=== PATIENT | female | born 1945 | race Caucasian/White ===

== ENCOUNTER → 2017-10-26 11:14 | Outpatient (CLI) | payer MEDICARE, SELFPAY ==
[2017-10-26 11:39] LABS: Bacteria 0 SEEN /hpf (None Seen); Mucous, Urine 0 SEEN /hpf (<or=2+)
[2017-10-26 11:52] LABS: Color, Urine Yellow (Yellow); Glucose, Dipstick Normal (Normal); Ketone-Dipstick Negative (Negative); Leukocyte Esterase-Dipstick 25 /ul (Negative); Nitrite-Dipstick Negative (Negative); Occult Blood-Urine 25 /ul (Negative); Protein-Dipstick 15 mg/dl (Negative); Specific Gravity, Urine 1.015 (1.002-1.030); Urine Bilirubin Dipstick Negative (Negative); Urine Clarity Sl. Cloudy (Clear); Urine Urobilinogen Normal (Normal)
[2017-10-26 11:56] LABS: AST(SGOT) 19 U/L (15-37); Alanine Aminotransfer ALT/SGPT 26 U/L (13-56); Albumin, Serum 4.3 g/dL (3.2-5.0); Alkaline Phosphatase 85 U/L (45-117); Anion Gap 9 (5-15); BUN 12 mg/dL (7-18); BUN/Creat Ratio 10.3 RATIO (10-20); Calcium,Total 9.2 mg/dL (8.5-10.1); Chloride 105 mmol/L (98-107); Cholesterol 260 mg/dL (200); Creatinine, Serum 1.16 mg/dL (0.55-1.02); EST Glomerular Filtration Rate 49 mL/min (>60); Est Glom Filt Rate - Afr Amer 59 mL/min (>60); Globulin 4.2 g/dL (2.2-4.2); Glucose 113 mg/dL (74-106); High Density Lipoprotein 78 mg/dL; Potassium 3.7 mmol/L (3.5-5.1); Protein, Total 8.5 g/dL (6.4-8.2); Sodium Level 142 mmol/L (136-145); Triglycerides 137 mg/dL; Very Low Density Lipoprotein 27 mg/dL (5-40)
[2017-10-26 12:00] LABS: Hyaline Cast 0-5 SEEN /lpf (0-5); Red Blood Cells-Urine 0-5 SEEN /hpf (0-5); Squamous Epithelial Cells - UA 0-5 SEEN /hpf (5-10); White Blood Cells 0-5 SEEN /hpf (0-5)
[2017-10-26 12:04] LABS: Vitamin D,25 Hydroxy 35.3 ng/mL (29.95-100.01)
== END ==
PROVIDERS: Family Provider Family Medicine; PCP Family Medicine; Visit Provider Family Medicine
DX: E78.2 Mixed hyperlipidemia (principal); E55.9 Vitamin D deficiency, unspecified
CPT/HCPCS: 80053; 80061; 81001; 82306

== ENCOUNTER → 2018-08-06 15:44 | Outpatient (CLI) | payer MEDICARE, SELFPAY ==
[2018-08-06 16:33] LABS: AST(SGOT) 22 U/L (15-37); Alanine Aminotransfer ALT/SGPT 28 U/L (13-56); Albumin, Serum 4.4 g/dL (3.2-5.0); Alkaline Phosphatase 94 U/L (45-117); Bilirubin, Direct 0.15 mg/dL (0.00-0.30); Cholesterol 193 mg/dL (200); Globulin 4.2 g/dL (2.2-4.2); High Density Lipoprotein 75 mg/dL; Protein, Total 8.6 g/dL (6.4-8.2); Triglycerides 100 mg/dL; Very Low Density Lipoprotein 20 mg/dL (5-40)
== END ==
PROVIDERS: Family Provider Family Medicine; PCP Family Medicine; Referring Provider Family Medicine; Visit Provider Family Medicine
DX: E78.2 Mixed hyperlipidemia (principal)
CPT/HCPCS: 80061; 80076

== ENCOUNTER → 2019-06-19 | Outpatient (CLI) | payer MEDICARE, SELFPAY ==
[2019-06-19 17:02] LABS: Cholesterol 259 mg/dL (200); High Density Lipoprotein 50 mg/dL; Thyroid Stim Hormone (TSH) 2.14 uIU/mL (0.358-3.74); Triglycerides 230 mg/dL; Very Low Density Lipoprotein 46 mg/dL (5-40)
== END | disposition home or self-care (01) ==
PROVIDERS: PCP Family Medicine; Referring Provider Physician Assistant; Visit Provider Physician Assistant
DX: R63.5 Abnormal weight gain (principal); E78.2 Mixed hyperlipidemia
CPT/HCPCS: 80061; 84439; 84443

== ENCOUNTER → 2019-12-11 | Outpatient (CLI) | payer MEDICARE, SELFPAY ==
[2019-12-11 13:08] LABS: Mucous, Urine 0 SEEN /hpf (<or=2+); Red Blood Cells-Urine 0 SEEN /hpf (0-5)
[2019-12-11 13:20] LABS: Color, Urine Yellow (Yellow); Glucose, Dipstick Normal (Normal); Ketone-Dipstick Negative (Negative); Leukocyte Esterase-Dipstick Negative /ul (Negative); Nitrite-Dipstick Negative (Negative); Occult Blood-Urine 10 /ul (Negative); Protein-Dipstick Negative (Negative); Urine Bilirubin Dipstick Negative (Negative); Urine Clarity Sl. Cloudy (Clear); Urine Urobilinogen Normal (Normal); Urine pH 6.5 (5.0 - 8.0)
[2019-12-11 13:27] LABS: Bacteria 1+ /hpf (None Seen); Squamous Epithelial Cells - UA 0-5 SEEN /hpf (5-10); White Blood Cells 0-5 SEEN /hpf (0-5)
[2019-12-11 13:32] LABS: Cholesterol 188 mg/dL (200); High Density Lipoprotein 69 mg/dL; Triglycerides 166 mg/dL; Very Low Density Lipoprotein 33 mg/dL (5-40)
[2019-12-11 13:34] LABS: Vitamin D,25 Hydroxy 38.6 ng/mL
== END | disposition home or self-care (01) ==
LOC: LABSPEC 12:15
PROVIDERS: PCP Family Medicine; Referring Provider Family Medicine; Visit Provider Family Medicine
DX: E78.2 Mixed hyperlipidemia (principal); E55.9 Vitamin D deficiency, unspecified
CPT/HCPCS: 80061; 81001; 82306

== ENCOUNTER → 2020-06-11 | Outpatient (CLI) | payer MEDICARE, SELFPAY ==
[2020-06-11 15:33] LABS: Mucous, Urine 0 SEEN /hpf (<or=2+); Red Blood Cells-Urine 0 SEEN /hpf (0-5); White Blood Cells 0 SEEN /hpf (0-5)
[2020-06-11 15:43] LABS: Absolute Lymphocyte Count 3.59 X10^3/uL (0.83-4.51); Absolute Neutrophil Count 7.5 X10^3/uL (2.0-7.7); Basophil# 0.08 X10^3/uL; Basophil% 0.7 % (0-1); Eosinophil# 0.18 X10^3/uL; Eosinophils% 1.5 % (0-5); Hematocrit 41.8 % (37-47); Hemoglobin 13.8 g/dL (12.0-15.0); Lymphocyte # 3.59 X10^3/ul (4.0); Lymphocyte % 29.3 % (19-41); Mean Corpuscular Hgb 29.6 pg (27.0-32.0); Mean Corpuscular Volume 89.7 fL (81-99); Mean Platelet Vol. 12.3 fl (6.2-12.0); Monocyte# 0.88 X10^3/uL; Monocyte% 7.2 % (0-10); NRBC Flagged by Analyzer 0 % (0-5); Neutrophil # 7.48 X10^3/uL (2.7-7.7); Platelet Count 321 K/mm3 (150-450); RBC Distribution Width CV 14.8 % (11.6-14.6); RBC Distribution Width SD 48.5 fl (35.1-43.9); Red Blood Count 4.66 M/mm3 (4.2-5.4); White Blood Count 12.3 K/mm3 (4.4-11.0)
[2020-06-11 15:55] LABS: AST(SGOT) 24 U/L (15-37); Alanine Aminotransfer ALT/SGPT 32 U/L (13-56); Albumin, Serum 4.1 g/dL (3.2-5.0); Alkaline Phosphatase 96 U/L (45-117); Anion Gap 9 (5-15); BUN 14 mg/dL (7-18); BUN/Creat Ratio 13.2 RATIO (10-20); Calcium,Total 9.4 mg/dL (8.5-10.1); Chloride 105 mmol/L (98-107); Cholesterol 209 mg/dL (200); Creatinine, Serum 1.06 mg/dL (0.55-1.02); EST Glomerular Filtration Rate 54 mL/min (>60); Est Glom Filt Rate - Afr Amer 65 mL/min (>60); Globulin 4.3 g/dL (2.2-4.2); Glucose 92 mg/dL (74-106); High Density Lipoprotein 61 mg/dL; Potassium 3.5 mmol/L (3.5-5.1); Protein, Total 8.4 g/dL (6.4-8.2); Sodium Level 139 mmol/L (136-145); Triglycerides 139 mg/dL; Very Low Density Lipoprotein 28 mg/dL (5-40)
[2020-06-11 15:56] LABS: Vitamin D,25 Hydroxy 52.9 ng/mL
[2020-06-11 16:01] LABS: Color, Urine Yellow (Yellow); Glucose, Dipstick Normal (Normal); Ketone-Dipstick 5 mg/dl (Negative); Leukocyte Esterase-Dipstick Negative /ul (Negative); Nitrite-Dipstick Negative (Negative); Occult Blood-Urine Negative /ul (Negative); Protein-Dipstick Negative (Negative); Specific Gravity, Urine 1.015 (1.002-1.030); Urine Bilirubin Dipstick Negative (Negative); Urine Clarity Clear (Clear); Urine Urobilinogen Normal (Normal)
[2020-06-11 16:19] LABS: Bacteria 2+ /hpf (None Seen); Hyaline Cast 0-5 SEEN /lpf (0-5); Squamous Epithelial Cells - UA 0-5 SEEN /hpf (5-10)
== END | disposition home or self-care (01) ==
LOC: LABSPEC 15:15
PROVIDERS: PCP Family Medicine; Visit Provider Family Medicine
DX: Z79.899 Other long term (current) drug therapy (principal); E78.2 Mixed hyperlipidemia; E55.9 Vitamin D deficiency, unspecified
CPT/HCPCS: 80053; 80061; 81001; 82306; 85025

== ENCOUNTER 2020-06-24 14:05 | Outpatient (RCR) | payer MEDICARE, SELFPAY ==
[2020-06-24] MEDS: COVID-19 VACC, MRNA(PFIZER)/PF 30 MCG/0.3 ML SYRINGE IM (13:24)
[2020-07-15] MEDS: COVID-19 VACC, MRNA(PFIZER)/PF 30 MCG/0.3 ML SYRINGE IM (13:35)
== END 2020-09-21 23:59 ==
LOC: IMMUN 14:05
PROVIDERS: PCP Family Medicine; Visit Provider Family Medicine
DX: Z23 Encounter for immunization (principal)
CPT/HCPCS: 0001A; 0002A; 91300

== ENCOUNTER → 2020-11-12 | Outpatient (CLI) | payer MEDICARE, SELFPAY ==
[2020-11-18 12:08] LABS: HSV 1 By PCR Negative (Negative)
[2020-11-18 12:59] LABS: HSV 2 By PCR Negative (Negative)
== END | disposition home or self-care (01) ==
PROVIDERS: PCP Family Medicine; Visit Provider Nurse Practitioner Family
DX: R21 Rash and other nonspecific skin eruption (principal)
CPT/HCPCS: 87101; 87529; 87798

== ENCOUNTER → 2021-01-03 | Outpatient (CLI) | payer MEDICARE, SELFPAY ==
[2021-01-03 16:43] LABS: Cholesterol 284 mg/dL (200); High Density Lipoprotein 58 mg/dL; T4 Free Direct 0.93 ng/dL (0.76-1.46); Thyroid Stim Hormone (TSH) 2.01 uIU/mL (0.358-3.74); Triglycerides 206 mg/dL; Very Low Density Lipoprotein 41 mg/dL (5-40)
== END | disposition home or self-care (01) ==
LOC: LABSPEC 16:05
PROVIDERS: PCP Family Medicine; Referring Provider Physician Assistant; Visit Provider Physician Assistant
DX: E78.2 Mixed hyperlipidemia (principal); R63.5 Abnormal weight gain; R53.83 Other fatigue
CPT/HCPCS: 80061; 84439; 84443

== ENCOUNTER 2021-06-10 12:10 | Observation (INO) | payer MEDICARE, SELFPAY ==
[2021-06-10] VITALS (8 sets, daily range): BP systolic 145–186; BP diastolic 62–116; PULSE 100–127; RESP 12–24; TEMP 36.3–36.6; O2SAT 94–98; BMI 34.9; BMI 39.4
--- NOTE | 2021-06-10 12:14 | EKG12_ITS ---
Test Reason : CONFUSION Blood Pressure : / mmHG Vent. Rate : 114 BPM Atrial Rate : 114 BPM P-R Int : 160 ms QRS Dur : 088 ms QT Int : 354 ms P-R-T Axes : 053 026 003 degrees QTc Int : 487 ms Sinus tachycardia Inferior infarct , age undetermined Abnormal ECG Confirmed by ELYSSA CALI, PEPE ([id number]), online content editor JODIE PONCE ([id number]) on 06/13/2021 11:59:46 AM Referred By: ELHAM Confirmed By:PEPE BERGERON MD
[2021-06-10 12:41] LABS: Mucous, Urine 0 SEEN /hpf (<or=2+); Red Blood Cells-Urine 0 SEEN /hpf (0-5)
[2021-06-10 12:43] LABS: Absolute Lymphocyte Count 3.49 X10^3/uL (0.83-4.51); Absolute Neutrophil Count 8.4 X10^3/uL (2.0-7.7); Basophil# 0.08 X10^3/uL; Basophil% 0.6 % (0-1); Eosinophil# 0.16 X10^3/uL; Eosinophils% 1.2 % (0-5); Hematocrit 37.7 % (37-47); Hemoglobin 13.1 g/dL (12.0-15.0); Lymphocyte # 3.49 X10^3/ul (0.83-4.51); Lymphocyte % 26.4 % (19-41); Mean Corp Hgb Conc 34.7 g/dL (32-36); Mean Corpuscular Hgb 30.4 pg (27.0-32.0); Mean Corpuscular Volume 87.5 fL (81-99); Mean Platelet Vol. 10.5 fl (6.2-12.0); Monocyte# 1.04 X10^3/uL; Monocyte% 7.9 % (0-10); NRBC Flagged by Analyzer 0 % (0-5); Neutrophil # 8.41 X10^3/uL (2.7-7.7); Neutrophil % 63.6 % (47-70); Platelet Count 375 K/mm3 (150-450); RBC Distribution Width CV 14.1 % (11.6-14.6); RBC Distribution Width SD 45.7 fl (35.1-43.9); Red Blood Count 4.31 M/mm3 (4.2-5.4); White Blood Count 13.2 K/mm3 (4.4-11.0)
[2021-06-10 12:52] LABS: Anion Gap 6 (5-15); BUN 8 mg/dL (7-18); BUN/Creat Ratio 9.6 RATIO (10-20); Calcium,Total 9.1 mg/dL (8.5-10.1); Chloride 99 mmol/L (98-107); Creatinine, Serum 0.83 mg/dL (0.55-1.02); EST Glomerular Filtration Rate 71 mL/min (>60); Est Glom Filt Rate - Afr Amer 86 mL/min (>60); Estimated Creatinine Clearance 44.19 ml/min; Glucose 117 mg/dL (74-106); Potassium 3.5 mmol/L (3.5-5.1); Sodium Level 134 mmol/L (136-145)
[2021-06-10 12:53] LABS: Color, Urine Yellow (Yellow); Glucose, Dipstick Normal (Normal); Ketone-Dipstick Negative (Negative); Leukocyte Esterase-Dipstick Negative /ul (Negative); Nitrite-Dipstick Negative (Negative); Occult Blood-Urine 25 /ul (Negative); Protein-Dipstick Negative (Negative); Specific Gravity, Urine 1.005 (1.002-1.030); Urine Bilirubin Dipstick Negative (Negative); Urine Clarity Clear (Clear); Urine Urobilinogen Normal (Normal)
[2021-06-10 12:55] LABS: Prothrombin Time (Protime)PT. 12.7 SECONDS (11.7-14.9)
[2021-06-10 12:56] LABS: Partial Thromboplast Time 29.3 Seconds (24.1-36.2)
[2021-06-10 13:06] LABS: Bacteria 1+ /hpf (None Seen); Squamous Epithelial Cells - UA 0-5 SEEN /hpf (5-10); White Blood Cells 0-5 SEEN /hpf (0-5)
[2021-06-10] MEDS: 0.9% Normal Saline 1,000 ML 50 ML IV (14:04)
--- NOTE | 2021-06-10 14:06 | RAD_ITS ---
STUDY: X-RAY CHEST REASON FOR EXAM: Female, 75 years old. Stroke . Confusion. TECHNIQUE: Single AP portable view of the chest. COMPARISON: None. FINDINGS: EKG electrodes are seen. The lungs are clear and expanded. There is no demonstrated pleural abnormality. Normal size heart. Normal mediastinum and jamey. Normal visualized pulmonary arteries. There is atherosclerotic tortuosity of the aortic arch and descending thoracic aorta. There are diffuse degenerative changes of the visualized thoracic spine. Normal visualized ribs, clavicles, and shoulders. There is no demonstrated abnormality of the visualized soft tissue structures of the upper abdomen. RAD/Chest 1 View (Portable) IMPRESSION: No acute abnormality is seen. Electronically Signed: Luis Miguel Saavedra MD at 14:46 EST ,
--- NOTE | 2021-06-10 15:17 | CT_ITS ---
STUDY: CT BRAIN WITHOUT CONTRAST REASON FOR EXAM: Female, 75 years old. Mental status change. RADIATION DOSAGE (If Supplied By Facility): CTDIvol = ( 47.06 ) mGy, DLP = ( 819.74 ) mGycm TECHNIQUE: Transaxial CT imaging of the brain was performed without administration of intravenous contrast material. Individualized dose optimization techniques were used for this CT. COMPARISON: No relevant priors. FINDINGS: Normal soft tissue structures. Normal calvarium. Normal size ventricles and extra-axial spaces for the patient''s age. Normal white matter tracts of the cerebral hemispheres. Normal basal ganglia and thalami. Normal brainstem. Normal cerebellum. There is no intracranial hemorrhage. There are no findings of an acute ischemic infarction. Normal visualized paranasal sinuses. CT/Brain/Head without Contrast IMPRESSION: No acute intracranial or calvarial abnormality. If there is continued concern for acute stroke, MRI is recommended. Electronically Signed: Silvino Aguillon DO at 16:39 EST ,
--- NOTE | 2021-06-10 15:17 | RAD_ITS ---
STUDY: X-RAY CHEST REASON FOR EXAM: Female, 75 years old. Mental status change. TECHNIQUE: Single AP portable view of the chest. COMPARISON: 06/10/2021 ([id number]). FINDINGS: The lungs are clear and expanded. There is no demonstrated pleural abnormality. Normal size heart. Normal mediastinum and jamey. Normal visualized pulmonary arteries. There is atherosclerotic tortuosity of the aortic arch and descending thoracic aorta. There are diffuse degenerative changes of the visualized thoracic spine. Normal visualized ribs, clavicles, and shoulders. There is no demonstrated abnormality of the visualized soft tissue structures of the upper abdomen. RAD/Chest 1 View (Portable) IMPRESSION: No acute cardiopulmonary disease or interval change. Electronically Signed: Silvino Aguillon DO at 16:22 EST ,
--- NOTE | 2021-06-10 15:18 | EDS_ITS ---
HPI History of Present Illness Chief Complaint: Alt LOC Informant: patient and spouse/S.O. Onset/Context/Timing Onset: Yesterday Context: Gradual Onset Timing: Continuous Current Severity: Gone Maximum Severity: Moderate Narrative Narrative: 75-year-old female history of hypertension and 1 prior seizure. states last night around 9:00 she start talking out of her head. States she was confused. She was asking about her grandparents who have been for many years. She denied any illness. She did have a fever or headache. No recent falls. No recent hospitalization. He said that continued today but now she seems to be improved. She had one episode of nausea and vomiting. She denies any dysuria or diarrhea. Prior similar symptoms: No Recent Illness/Hospitalization: No PFSH PFSH Medical History History of seizure Hypertension Allergy/AdvReac Type Severity Reaction Status Date / Time Sulfa (Sulfonamide Allergy Other Verified 06/10/21 12:39 Antibiotics) Surgical History H/O: hysterectomy History of right hip replacement Social History Smoking Status: Never smoker ROS ROS ED ROS Narrative Denies recent illness. One episode of nausea and vomiting last 24 hours. Review of Systems ROS Unobtainable: Denies due to encephalopathy Constitutional Constitutional ED: Denies chills or fever(s) Eyes Eyes: Denies change in vision ENT ENT ED: Denies ear pain Cardiovascular Cardiovascular: Denies chest pain Respiratory/Chest Respiratory/Chest: Denies cough or dyspnea Gastrointestinal Gastrointestinal: Reports nausea and vomiting; Denies abdominal pain, constipation or diarrhea Genitourinary Genitourinary ED: Denies dysuria Musculoskeletal Musculoskeletal: Denies myalgias Integumentary Denies rash Neurologic Neurologic: Denies headache(s) Psychiatric Psychiatric: Denies depression Endocrine Endocrinology: Denies polyuria Allergic/Immunologic Allergic/Immunologic ED: Denies urticaria EXAM Physical Exam Narrative Exam Narrative: 75 female no acute distress lying in bed. at bedside. Vital signs stable. Current blood pressure 145/78. Pulse ox 95% on room air no signs of hypoxia. She is afebrile. She does not look septic or toxic. She is no distress. H EENT exam unremarkable. No facial droop. Pupils round reactive light. Moist mucous memories. No trauma to her head or face. C-spine nontender. Trachea midline. No lymphadenopathy. No meningismus. Lungs clear to auscultation bilaterally. Heart tachycardic rate about 110 no murmur. Chest wall nontender. Abdomen soft nontender. She is yeast infection below both breasts. Moving all 4 extremities. Normal narcotics investigator strength. Normal dorsi plantar flexion. She can lift either arm or either leg there is no drift. Neurologically currently speaking normally. She has no facial droop. She knows the day of the week, month of the year she knows where she is at and she knows the president night states. She is not confused at this time. Her NIH score is 0. Const Vital Signs: 06/10/21 12:10 06/10/21 14:00 06/10/21 14:10 Temperature 97.9 F Temperature Source Oral Pulse Rate 127 H 110 H Respiratory Rate 24 H 18 Blood Pressure 186/116 H 145/78 H Blood Pressure Mean 139 100 Pulse Ox 94 95 Oxygen Delivery Method Room Air Room Air Room Air 06/10/21 16:00 Temperature Temperature Source Pulse Rate 107 H Respiratory Rate 12 Blood Pressure 146/62 H Blood Pressure Mean 90 Pulse Ox 95 Oxygen Delivery Method Room Air Positive well nourished, well developed and obese; Negative for cachectic, contractures or unkempt General Appearance ED: well developed and NAD; Negative for unkempt, cachectic, contractures, cyanotic, diaphoretic or pallor Nutritional Appearance: obese; Negative for cachectic HEENT Reports moist mucous membranes Negative for trauma or tenderness Eyes PERRL and EOMs intact bilaterally General Eye ED: Negative for pale conjunctiva or scleral icterus Neck no lymphadenopathy, supple and no JVD General: Negative for tenderness Chest Wall inspection of chest normal and palpation of chest normal Resp normal respiratory effort and clear to auscultation bilaterally Effort and Inspection: Negative for pain with movement Auscultation: Negative for rales, rhonchi or wheezes Cardio regular rhythm, S1 normal heart sound, S2 normal heart sound and no murmurs; Negative for regular rate Rate: tachycardic GI normal to inspection, nondistended, normoactive bowel sounds, non-tender, non- distended and no masses Auscultation: normoactive bowel sounds Palpation: soft; Negative for tender, guarding or rebound tenderness present Back/Spine no CVA tenderness General Back: Negative for CVA tenderness Cervical Spine: Negative for cervical spine tenderness Thoracic Spine / Upper Back: Negative for thoracic spinal tenderness or paraspinal muscle tenderness Extremity normal to inspection General Extremety ED: Negative for edema or tenderness General Extremity: Negative for edema Neuro oriented x3 and CN's II-XII intact bilaterally Sensorium / Orientation: alert; Negative for orientation impaired, lethargic or stuporous Motor Exam: strength 5/5 throughout; Negative for general weakness Psych mental status grossly normal Appearance: Negative for unkempt Attitude: No agitated Mood & Affect: Negative for depressed, anxious or tearful Skin No no rashes or lesions noted and no wounds Skin Narrative: Bilateral yeast infection of the lower breast. General Skin Exam: Negative for jaundice or pallor MDM MDM MDM Narrative Medical decision making narrative: 75-year-old female reported confusion mental status change which began last night. Current exam is benign. She has no mental status change at this time. She is awake alert. There are no focal motor deficits. CAT scan and labs will be obtained. Repeat exam at 4:31 PM patient is doing well. She is remains awake and alert. agrees she is back to her baseline. So far we have gone over her test results. I am awaiting her CAT scan of her brain. I have already reviewed that myself and see no acute abnormality but are awaiting the radiologist interpretation. We were walking the patient in the hallway she turned around her going back into the room and fell. I did assess her of the fall she has any complaints. She denies any hip pain. She did not hit her head. In light of her fall and her earlier confusion and leukocytosis without cause I will speak to the hospitalist about admission for further evaluation. Lab Data Attestation: I reviewed the patient's lab results. Lab results narrative: CBC White count 13.2. H&H 13 and 37. PT/INR PTT normal. Electrolytes show sodium 134. Gap is 6. Normal BUN and creatinine. Glucose 117. UA is normal. There is no signs of infection. No nitrates. No whites or red cells. Labs: Laboratory Results - last 24 hr 06/10/21 06/10/21 06/10/21 12:25 12:25 12:25 WBC 13.2 H RBC 4.31 Hgb 13.1 Hct 37.7 MCV 87.5 MCH 30.4 MCHC 34.7 RDW Std Deviation 45.7 H RDW Coeff of Radha 14.1 Plt Count 375 MPV 10.5 Immature Gran % (Auto) 0.300 Neut % (Auto) 63.6 Lymph % (Auto) 26.4 Placer % (Auto) 7.9 Eos % (Auto) 1.2 Baso % (Auto) 0.6 Absolute Neuts (auto) 8.4 H Absolute Lymphs (auto) 3.49 Nucleated RBC % 0 PT 12.7 INR 1.0 APTT 29.3 Sodium 134 L Potassium 3.5 Chloride 99 Carbon Dioxide 29.0 Anion Gap 6 BUN 8 Creatinine 0.83 Estim Creat Clear Calc 44.19 Est GFR (MDRD) Af Amer 86 Est GFR (MDRD) Non-Af 71 BUN/Creatinine Ratio 9.6 L Glucose 117 H Calcium 9.1 Urine Color Urine Clarity Urine pH Ur Specific [place] Urine Protein Urine Glucose (UA) Urine Ketones Urine Occult Blood Urine Nitrite Urine Bilirubin Urine Urobilinogen Ur Leukocyte Esterase Urine RBC Urine WBC Ur Squamous Epith Cells Urine Bacteria Urine Mucus 06/10/21 12:34 WBC RBC Hgb Hct MCV MCH MCHC RDW Std Deviation RDW Coeff of Radha Plt Count MPV Immature Gran % (Auto) Neut % (Auto) Lymph % (Auto) Placer % (Auto) Eos % (Auto) Baso % (Auto) Absolute Neuts (auto) Absolute Lymphs (auto) Nucleated RBC % PT INR APTT Sodium Potassium Chloride Carbon Dioxide Anion Gap BUN Creatinine Estim Creat Clear Calc Est GFR (MDRD) Af Amer Est GFR (MDRD) Non-Af BUN/Creatinine Ratio Glucose Calcium Urine Color Yellow Urine Clarity Clear Urine pH 7.0 Ur Specific [place] 1.005 Urine Protein Negative Urine Glucose (UA) Normal Urine Ketones Negative Urine Occult Blood 25 H Urine Nitrite Negative Urine Bilirubin Negative Urine Urobilinogen Normal Ur Leukocyte Esterase Negative Urine RBC 0 SEEN Urine WBC 0-5 SEEN Ur Squamous Epith Cells 0-5 SEEN Urine Bacteria 1+ Urine Mucus 0 SEEN Radiography Chest X-Ray - ED: 1 View, Read by ED Physician, Read by Radiologist, Heart, Lungs, Mediastinum, Bony Structures, No Acute Disease and Chronic Changes Diagnostic Testing: Clinical Impression(s) from Imaging Studies Chest X-Ray 06/10/21 14:06 IMPRESSION: No acute abnormality is seen. Electronically Signed: Luis Miguel Saavedra MD at 14:46 EST , Chest X-Ray 06/10/21 15:17 IMPRESSION: No acute cardiopulmonary disease or interval change. Electronically Signed: Silvino Aguillon DO at 16:22 EST , Chest x-ray portable view shows no acute abnormality. Interpreted by myself and the radiologist. Rhythm Strip Rhythm Strip: Sinus Tach Rate: 114 Ectopy: None EKG Initial EKG: Attestation: I personally reviewed and interpreted this EKG as follows: Interpretation: No Acute Injury Pattern and Sinus Tachycardia Comments: Sinus tachycardia rate of 114 no acute signs of SD or ischemia. Prior EKG tracings: not available for review Discharge Plan Dx/Rx/DC Orders Clinical Impression: Altered mental status, Leukocytosis, Fall, Tachycardia Disposition Disposition: Acute Care Hospital [facility]
--- NOTE | 2021-06-10 16:58 | PCM.HP.STD ---
HPI - General General Date of Admission: 06/10/21 Date of Service: 06/10/21 Chief Complaint: Confusion, ? expressive aphasia. HPI Narrative The patient is a 75 y/o F w/ PMHx: Hx seizure x 1 prior, HTN, HLD who presents to the [facility] ED on 06/10/21 with history of abnormal speech patterns, suspected expressive aphasia starting around 9 PM the evening prior with confusion noted per to be asking about her grandparents who have been for many years with some improvement on day of presentation but ongoing symptoms with one episode of nausea and emesis following with no recent fever, chills, headache prompting ED evaluation. While in the ED upon walking attempt patient despite return to her baseline mentally had fall without injury. denies any jerking or shaking of her body or any loss of bowel or bladder during this time. Work-up in the ED included T 97.9, heart rate initially 127 with most recent repeat 110, BP initially 186/116 with most recent repeat 145 or 78, respiratory rate 18-24, 94 to 95% on room air, CBC with WC 13.2, hemoglobin 13.1, platelets 375 with left shift, unremarkable coags, BMP with sodium 134, glucose 117 otherwise not marked appearing, urinalysis not marked appearing, chest x-ray with no acute cardiopulmonary findings, CT of the brain with no acute intracranial calvarial abnormality, EKG sinus tachycardia with no acute evidence of ischemia. [facility] Medical History (Updated 06/10/21 @ 16:[address] Amy Dupont MD) Anxiety and depression Chronic insomnia History of seizure HLD (hyperlipidemia) Hypertension Home Medications atorvastatin 10 mg PO QODAY 06/10/21 [History Last Taken 06/08/21] buspirone 5 mg PO BID 06/10/21 [History Last Taken 06/10/21] diclofenac-misoprostol 1 tab PO BID 06/10/21 [History Last Taken 06/10/21] duloxetine 60 mg PO DAILY 06/10/21 [History Last Taken 06/10/21] propranolol 20 mg PO DAILY 06/10/21 [History Last Taken 06/10/21] zolpidem 6.25 mg PO QHS 06/10/21 [History Last Taken 06/09/21] Allergy/AdvReac Type Severity Reaction Status Date / Time Sulfa (Sulfonamide Allergy Other Verified 06/10/21 12:39 Antibiotics) Family History (Updated 06/10/21 @ 17:[address] Amy Dupont MD) Mother Heart disease CHF exacerbation Cancer Hx bladder CA. Father Heart disease Myocardial infarction Surgical History (Updated 06/10/21 @ 17:[address] Amy Dupont MD) H/O tooth extraction H/O: hysterectomy History of right hip replacement Social History (Updated 06/10/21 @ 17:[address] Amy Dupont MD) household members: spouse Smoking Status: Never smoker alcohol intake: never substance use type: does not use ROS ROS Narrative Admission Review of Systems: CONSTITUTIONAL: No weight loss, fever, chills, + weakness or fatigue. HEENT: Eyes: No visual loss, blurred vision, double vision or yellow sclerae. Ears, Nose, Throat: No hearing loss, sneezing, congestion, runny nose or sore throat. SKIN: + Intertrigo. CARDIOVASCULAR: No chest pain, chest pressure or chest discomfort, palpitations, edema, orthopnea, syncopal events. RESPIRATORY: No shortness of breath, cough or sputum, wheezing, hemoptysis. GASTROINTESTINAL: No anorexia, nausea, vomiting or diarrhea, abdominal pain, melena, BRBPR. GENITOURINARY: No dysuria, frequency, urgency or retention. NEUROLOGICAL: + Confusion, falls, aphasia. No headache, dizziness, syncope, paralysis, ataxia, numbness or tingling in the extremities,change in bowel or bladder control, seizure. MUSCULOSKELETAL: + muscle, back pain, joint pain or stiffness. HEMATOLOGIC: No anemia, bleeding or bruising. LYMPHATICS: No enlarged nodes. No history of splenectomy. PSYCHIATRIC: + history of depression or anxiety. ENDOCRINOLOGIC: No reports of sweating, cold or heat intolerance. No polyuria or polydipsia. ALLERGIES: No history of asthma, hives, eczema or rhinitis. Vital Signs Vital Signs Vital Signs: 06/10/21 12:10 06/10/21 14:00 06/10/21 14:10 Temperature 97.9 F Temperature Source Oral Pulse Rate 127 H 110 H Respiratory Rate 24 H 18 Blood Pressure 186/116 H 145/78 H Blood Pressure Mean 139 100 Pulse Ox 94 95 Oxygen Delivery Method Room Air Room Air Room Air 06/10/21 16:00 Temperature Temperature Source Pulse Rate 107 H Respiratory Rate 12 Blood Pressure 146/62 H Blood Pressure Mean 90 Pulse Ox 95 Oxygen Delivery Method Room Air Weight Weight: 185 lb Body Mass Index (BMI) 34.9 Physical Exam Narrative Physical Examination: General: Awake, alert, oriented x 3 including person, place, year, back to baseline per discussion with spouse but prior to this from discussions concern for potentially expressive aphasia, remains cooperative, seated upright in the bed, no acute distress Skin: Normal color, normal turgor, no icterus, no cyanosis except notable intertrigo underneath bilateral breasts, right worse than left. HEENT: AT/NC, EOMI, PERRLA, mildly dry MM, lacking teeth, no carotid bruits or JVD noted. Lungs: Diminished, greater bases, appropriate effort, no rales, ronchi or wheezing. Heart: Currently mildly tachycardic with regular rhythm; no gallop, rub audible. Abdomen: Soft, obese, NTTP, ND, mildly hyperactive BS, no HSM. Extremities: No cyanosis, clubbing, or edema. Neurological: Patient awake, alert, oriented as noted, cognitive function improved, suspect baseline intact; pupils equally reactive to light and accommodation, cranial nerves II-XII grossly normal, moving all 4 extremities, no focal deficits, strength preserved, [id number] and [id number] appropriate, sensation intact, no ongoing aphasia evident, equivocal Babinski. Psychiatric: Affect appears normal, no acute evidence of depressive or anxiety feelings. Results Lab / Micro Data Result Diagrams: 06/10/21 12:25 06/10/21 12:25 Labs: Laboratory Results - last 24 hr 06/10/21 12:25: WBC 13.2 H, RBC 4.31, Hgb 13.1, Hct 37.7, MCV 87.5, MCH 30.4, MCHC 34.7, RDW Std Deviation 45.7 H, RDW Coeff of Radha 14.1, Plt Count 375, MPV 10.5, Immature Gran % (Auto) 0.300, Neut % (Auto) 63.6, Lymph % (Auto) 26.4, [place] % (Auto) 7.9, Eos % (Auto) 1.2, Baso % (Auto) 0.6, Absolute Neuts (auto) 8.4 H, Absolute Lymphs (auto) 3.49, Nucleated RBC % 0 06/10/21 12:25: PT 12.7, INR 1.0, APTT 29.3 06/10/21 12:25: Sodium 134 L, Potassium 3.5, Chloride 99, Carbon Dioxide 29.0, Anion Gap 6, BUN 8, Creatinine 0.83, Estim Creat Clear Calc 44.19, Est GFR (MDRD) Af Amer 86, Est GFR (MDRD) Non-Af 71, BUN/Creatinine Ratio 9.6 L, Glucose 117 H, Calcium 9.1 06/10/21 12:34: Urine Color Yellow, Urine Clarity Clear, Urine pH 7.0, Ur Specific [place] 1.005, Urine Protein Negative, Urine Glucose (UA) Normal, Urine Ketones Negative, Urine Occult Blood 25 H, Urine Nitrite Negative, Urine Bilirubin Negative, Urine Urobilinogen Normal, Ur Leukocyte Esterase Negative, Urine RBC 0 SEEN, Urine WBC 0-5 SEEN, Ur Squamous Epith Cells 0-5 SEEN, Urine Bacteria 1+, Urine Mucus 0 SEEN Rhythm Strip Rhythm Strip: Sinus Tach Rate: 114 Ectopy: None Radiology Impression Chest X-Ray 06/10/21 14:06 IMPRESSION: No acute abnormality is seen. Electronically Signed: Luis Miguel Saavedra MD at 14:46 EST Reading Location ID and State: [facility] / [place] , Service support , Brain CT 06/10/21 15:17 IMPRESSION: No acute intracranial or calvarial abnormality. If there is continued concern for acute stroke, MRI is recommended. Electronically Signed: Silvino Aguillon DO at 16:39 EST Reading Location ID and State: [address] [place] [address] Tel [phone], Service support , Chest X-Ray 06/10/21 15:17 IMPRESSION: No acute cardiopulmonary disease or interval change. Electronically Signed: Silvino Aguillon DO at 16:22 EST Reading Location ID and State: [address] [place] [address] Tel [phone], Service support , Assessment & Plan Assessment/Plan (1) CVA (cerebral vascular accident): QUALIFIERS: CVA mechanism: unspecified Qualified Code(s): I63.9 - Cerebral infarction, unspecified PLAN: The patient is a 75 y/o F w/ PMHx: Hx seizure x 1 prior, HTN, HLD who presents to the [facility] ED on 06/10/21 with history of abnormal speech patterns, suspected expressive aphasia starting around 9 PM the evening prior with confusion noted per to be asking about her grandparents who have been for many years with some improvement on day of presentation but ongoing symptoms with one episode of nausea and emesis following. #1. ? Expressive aphasia, confusion concerning for TIA/CVA: Will admit to PCU, will obtain MRI Brain, MRA Head and carotid ultrasound, ECHO, PT/OT/Speech/Nutrition evaluation per protocol. Will consult Neurology for evaluation once further evaluation and imaging is obtained. Will allow permissive HTN, maintain on asa, continue statin, maintain on fall and aspiration precautions, will obtain magnesium, TSH, hemoglobin A1c and FLP. #2. Hypertension: We will maintain on permissive hypertension, as needed agents per stroke protocol. #3. Hyperlipidemia: Continue home statin regimen. AM FLP. #4. Anxiety and depression/chronic insomnia: We will continue patient home duloxetine and BuSpar regimen with hold parameters for BuSpar if patient becomes too sedate especially given presentation. Will hold patient's Ambien temporarily. #5. History of prior seizure: Per report patient has had only 1 previous seizure, not on any antielliptic medication. Presentation from history more concerning for expressive aphasia. If any concerns arise for seizure disorder given EEG machine is down this patient would be transferred unfortunately. #6. Leukocytosis, unclear etiology, only noted concern recently per patient infectious [place] is #7: UA not marked appearing, CXR unremarkable, will obtain procalcitonin, hydrate and repeat CBC in AM. #7. Intertrigo, underneath bilateral breast: We will initiate nystatin powder with hygiene intervention. #8. DVT prophylaxis: SCDs, Lovenox. #9. CODE status: Patient HCPOA and living will are both not set up. Patient and very interested therefore had lengthy discussion about recommendations as they have 5 children between them. Recommended discussions with case management/social work to review setting up. Discussed CODE status at length including difference between FULL code, DNR-CCA and DNR-CC status. Following discussions about the differences in these status, requested Full Code, but very specifically notes that if the process became futile she would prefer to pass. Advanced Care Planning Face to Face Time: 16 minutes. Charges/Coding Visit Charges OBSV E&M: 29005 Initial observation care L3 Procedures Hospitalists Procedures: 34598 Advncd Care Plan 30 Min
[2021-06-10 17:35] LABS: Magnesium 1.6 mg/dL (1.6-2.6)
--- NOTE | 2021-06-10 18:13 | ECHOD_ITS ---
Reason For Study: CVA Procedure This was a 2D Doppler, Color Flow transthoracic echocardiogram. The study was technically difficult. Exam performed portable in patient room. Left Ventricle Normal left ventricle. The estimated ejection fraction is 55-60 %. Right Ventricle Normal right ventricle. Normal systolic function. Atria Normal left atrium. Normal right atrium. Mitral Valve The mitral valve is structurally normal. No prolapse or stenosis seen. No mitral valve insufficiency. Tricuspid Valve Normal tricuspid valve. No tricuspid valve insufficiency. Aortic Valve Normal aortic valve. Pulmonic Valve The pulmonic valve is not well visualized. Great Vessels Normal aortic root. Pericardium/Pleural No pericardial effusion. Medication Performed a rapid injection of agitated mix of 9 cc saline and 1cc air to assess for atrial septal defect. MMode/2D Measurements & Calculations LVIDd: 3.8 cm IVSd: 0.98 cm Ao root diam: 3.0 cm LVIDs: 2.4 cm LVPWd: 0.94 cm FS: 37.4 % LAV(MOD-bp): 31.1 ml LVAd ap4: 23.0 cm2 LVAd ap2: 19.3 cm2 LAV(MOD-bp) Indexed: 16.8 ml/m2 LVLd ap4: 7.9 cm LVLd ap2: 7.5 cm LAV(MOD-sp2): 34.4 ml EDV(MOD-sp4): 56.0 ml EDV(MOD-sp2): 41.0 ml LAV(MOD-sp4): 26.2 ml EDV(sp4-el): 56.7 ml EDV(sp2-el): 42.0 ml LVAs ap4: 10.9 cm2 LVAs ap2: 10.7 cm2 LVLs ap4: 6.2 cm LVLs ap2: 6.5 cm ESV(MOD-sp4): 16.8 ml ESV(MOD-sp2): 14.6 ml ESV(sp4-el): 16.2 ml ESV(sp2-el): 15.0 ml EF(MOD-sp4): 70.0 % EF(MOD-sp2): 64.3 % EF(sp4-el): 71.4 % SV(MOD-sp4): 39.2 ml SV(MOD-sp2): 26.4 ml SV(sp4-el): 40.5 ml LA A4 area: 11.6 cm2 LA dimension(2D): 3.1 cm RA A4 area: 7.9 cm2 Doppler Measurements & Calculations MV E max saeid: 65.2 cm/sec Lat Peak E' Saeid: 9.4 cm/sec Med Peak E' Saeid: 7.6 cm/sec MV A max saeid: 126.3 cm/sec E/E' lat: 7.0 E/E' med: 8.5 MV E/A: 0.52 Ao V2 max: 172.4 cm/sec LV V1 max: 116.1 cm/sec PA V2 max: 150.1 cm/sec Ao max P.9 mmHg LV V1 max P.4 mmHg ECHO/Echo Complete Interpretation Summary The estimated ejection fraction is 55-60 %. Normal LV systolic function No previous echo to compare Ordering Physician: Amy Dupont Referring Physician: Xavi Cramer Performed By: La Gonzalez RDCS
--- NOTE | 2021-06-10 18:13 | MRI_ITS ---
STUDY: MRA OF THE HEAD WITHOUT CONTRAST REASON FOR EXAM: Female, 75 years old. CVA,expressive aphasia, episode of confusion TECHNIQUE: Standardized multiplanar fat and water weighted pulse sequences were obtained. COMPARISON: MRI brain obtained in conjunction with this exam. FINDINGS: There is diffuse, mild parenchymal atrophy. There is moderate to severe bilateral hippocampal atrophy. Normal white matter tracts of the supratentorial brain. No restricted diffusion. Chronic small vessel ischemic changes are seen in the periventricular white matter with multiple T2 and FLAIR bright hyperintense foci, mostly in the frontal lobes with minimal involvement of the parietal lobes. Normal bilateral basal ganglia. Normal thalami. There is no extra-axial fluid accumulation. Normal flow voids within the major intracranial circulation suggesting patency by spin echo criteria. MR angiography images show no stenosis of the intracranial internal carotid arteries, anterior middle cerebral arteries. There is a short segment of mild narrowing, roughly 25%, involving the intracranial right vertebral artery. There is asymmetric prominence of the right anterior inferior cerebellar artery compared to the left. Normal sella turcica, pituitary gland, infundibular stalk, optic chiasm and hypothalamus. Normal tectal plate and pineal gland. Normal midbrain, gamaliel and medulla. Normal cerebellum. Normal basal cisterns. Normal bilateral temporal bones. Normal bilateral internal auditory canals. No demonstrated orbital abnormality, within the constraints of a routine brain study. Normal visualized paranasal sinuses. Normal calvarium and skull base. Normal visualized soft tissue structures. Normal visualized upper cervical spine. MRI/MRA Head ONLY without Contrast IMPRESSION: Mild diffuse parenchymal atrophy and moderate to severe bilateral hippocampal atrophy. Moderate chronic small vessel ischemic changes evidenced by T2 and FLAIR bright foci involving the deep periventricular white matter of the frontal lobes with mild involvement of the parietal lobes. Up to 25% luminal narrowing intracranial right vertebral artery. No large vessel occlusion. No evidence of acute intracranial pathology. Electronically Signed: Mateus Alexandra DO at 20:59 EST ,
--- NOTE | 2021-06-10 18:13 | MRI_ITS ---
STUDY: MRI BRAIN WITHOUT CONTRAST REASON FOR EXAM: Female, 75 years old. CVA,expressive aphasia, episode of confusion TECHNIQUE: Standardized multiplanar fat and water weighted pulse sequences were obtained. COMPARISON: MR angiography of the brain from the same evening. FINDINGS: There is diffuse, mild parenchymal atrophy. There is moderate to severe bilateral hippocampal atrophy. Normal white matter tracts of the supratentorial brain. No restricted diffusion. Chronic small vessel ischemic changes are seen in the periventricular white matter with multiple T2 and FLAIR bright hyperintense foci, mostly in the frontal lobes with minimal involvement of the parietal lobes. Normal bilateral basal ganglia. Normal thalami. There is no extra-axial fluid accumulation. Normal flow voids within the major intracranial circulation suggesting patency by spin echo criteria. MR angiography images show no stenosis of the intracranial internal carotid arteries, anterior middle cerebral arteries. There is a short segment of mild narrowing, roughly 25%, involving the intracranial right vertebral artery. There is asymmetric prominence of the right anterior inferior cerebellar artery compared to the left. Normal sella turcica, pituitary gland, infundibular stalk, optic chiasm and hypothalamus. Normal tectal plate and pineal gland. Normal midbrain, gamaliel and medulla. Normal cerebellum. Normal basal cisterns. Normal bilateral temporal bones. Normal bilateral internal auditory canals. No demonstrated orbital abnormality, within the constraints of a routine brain study. Normal visualized paranasal sinuses. Normal calvarium and skull base. Normal visualized soft tissue structures. Normal visualized upper cervical spine. MRI/Brain without Contrast IMPRESSION: Mild diffuse parenchymal atrophy and moderate to severe bilateral hippocampal atrophy. Moderate chronic small vessel ischemic changes evidenced by T2 and FLAIR bright foci involving the deep periventricular white matter of the frontal lobes with mild involvement of the parietal lobes. Up to 25% luminal narrowing intracranial right vertebral artery. No large vessel occlusion. No evidence of acute intracranial pathology. Electronically Signed: Mateus Alexandra DO at 20:58 EST ,
--- NOTE | 2021-06-10 18:16 | ED.RN ---
pt. was ambulating with boom supervisor, pt. turned and fell backwards. sitting on floor. not witnessed by this nurse was notified by boom supervisor. dr. kennedy notified he assessed pt. pt denies any pain states just was turning missed hand rail and sat down.
[2021-06-10 18:20] LABS: Procalcitonin 0.05 ng/mL (0.00-0.09)
--- NOTE | 2021-06-10 18:30 | NURSING ---
This LIBRARY DIRECTOR was walking patient for an ambulatory test. Pt turned while holding onto perkins hand rail and lost balance. Pt fell onto bottom with assistance from staff. Reported to RIVER Sahni and Doctor Crow.
[2021-06-10] MEDS: 0.9% Normal Saline 1,000 ML 100 ML IV (18:51)
[2021-06-10] MEDS: 0.9% Saline Lock 10 ML Syringe IV (20:40)
[2021-06-10] MEDS: busPIRone 5 MG Tablet PO (20:40)
[2021-06-10] MEDS: Nystatin Powder 15gm Bottle 1 APPLIC TOPICAL (20:40)
[2021-06-10] MEDS: Famotidine 20 MG Tablet PO (20:40)
[2021-06-10] MEDS: Atorvastatin Calcium 20 MG Tablet PO (20:40)
[2021-06-10] MEDS: Acetaminophen 325 MG Tablet 650 MG PO (23:50)
[2021-06-10] MEDS: MELATONIN 3 MG TABLET PO (23:50)
[2021-06-11] VITALS (12 sets, daily range): BP systolic 149–158; BP diastolic 66–99; PULSE 89–120; RESP 15–18; TEMP 36.3–36.7; O2SAT 91–98; BMI 39.4
[2021-06-11 04:27] LABS: Absolute Lymphocyte Count 2.96 X10^3/uL (0.83-4.51); Absolute Neutrophil Count 6.4 X10^3/uL (2.0-7.7); Basophil# 0.08 X10^3/uL; Basophil% 0.7 % (0-1); Eosinophil# 0.32 X10^3/uL; Eosinophils% 2.9 % (0-5); Hemoglobin 12.6 g/dL (12.0-15.0); Lymphocyte # 2.96 X10^3/ul (0.83-4.51); Lymphocyte % 27.2 % (19-41); Mean Corpuscular Hgb 30.2 pg (27.0-32.0); Mean Corpuscular Volume 86.3 fL (81-99); Mean Platelet Vol. 10.8 fl (6.2-12.0); Monocyte# 1.04 X10^3/uL; Monocyte% 9.6 % (0-10); NRBC Flagged by Analyzer 0 % (0-5); Neutrophil # 6.44 X10^3/uL (2.7-7.7); Neutrophil % 59.3 % (47-70); Platelet Count 371 K/mm3 (150-450); RBC Distribution Width CV 14.3 % (11.6-14.6); Red Blood Count 4.17 M/mm3 (4.2-5.4); White Blood Count 10.9 K/mm3 (4.4-11.0)
[2021-06-11 05:03] LABS: ALB/GLOB Ratio 0.9 RATIO (0.9-2.4); AST(SGOT) 15 U/L (15-37); Alanine Aminotransfer ALT/SGPT 23 U/L (13-56); Albumin, Serum 3.4 g/dL (3.2-5.0); Alkaline Phosphatase 95 U/L (45-117); Anion Gap 8 (5-15); BUN 7 mg/dL (7-18); BUN/Creat Ratio 9.3 RATIO (10-20); Calcium,Total 8.7 mg/dL (8.5-10.1); Chloride 106 mmol/L (98-107); Cholesterol 164 mg/dL (200); Creatinine, Serum 0.75 mg/dL (0.55-1.02); EST Glomerular Filtration Rate 80 mL/min (>60); Est Glom Filt Rate - Afr Amer 96 mL/min (>60); Estimated Creatinine Clearance 36.68 ml/min; Globulin 3.8 g/dL (2.2-4.2); Glucose 118 mg/dL (74-106); High Density Lipoprotein 65 mg/dL; Potassium 3.4 mmol/L (3.5-5.1); Protein, Total 7.2 g/dL (6.4-8.2); Sodium Level 139 mmol/L (136-145); Thyroid Stim Hormone (TSH) 4.14 uIU/mL (0.358-3.74); Triglycerides 99 mg/dL; Very Low Density Lipoprotein 20 mg/dL (5-40)
[2021-06-11] MEDS: Nystatin Powder 15gm Bottle 1 APPLIC TOPICAL ×2 (05:23→12:46)
[2021-06-11] MEDS: 0.9% Normal Saline 1,000 ML 100 ML IV (05:23)
[2021-06-11 07:34] LABS: Hemoglobin A1c 5.6 % (3.8-5.6)
[2021-06-11] MEDS: DULoxetine Hcl 60 MG Capsule PO (07:36)
[2021-06-11] MEDS: Famotidine 20 MG Tablet PO (07:36)
[2021-06-11] MEDS: Aspirin 81 MG TAB.CHEW PO (07:36)
[2021-06-11] MEDS: busPIRone 5 MG Tablet PO (07:36)
[2021-06-11] MEDS: Enoxaparin 40 MG/0.4 ML Syringe SC (07:37)
[2021-06-11] MEDS: Acetaminophen 325 MG Tablet 650 MG PO (07:43)
[2021-06-11] MEDS: Potassium Chloride Oral Tablet 20 MEQ 40 MEQ PO (07:45)
--- NOTE | 2021-06-11 11:25 | CASEMGMT ---
Addendum entered by Olesya Carey 06/11/21 13:16: ST eval reviewed. Noted ST recommended. TC to ST [facility]. Yessy states ST recommended while pt in hospital d/t does not have her dentures, but states ST is not needed/recommended @ d/c once pt has her dentures. Pt declines needing/wanting any OP physical therapy or HHC . Addendum entered by Olesya Carey 06/11/21 13:14: Pt states her sister is planning on taking the walker to pt's home today so it is available when she returns home. She states it is the same walker she borrowed after hip surgery and it works very well for her. Original Note: RIVER SAMANIEGO NOTE: PT/OT notes reviewed. No additional therapy recommended. Pt did use WW during eval and per notes, pt has not been using DME to ambulate prior to hospitalization. RIVER SAMANIEGO to room to talk w/pt. She states she does wish to continue to use a walker @ d/c and states her sister has a walker that she can borrow but she is not sure if she can get it today. RIVER SAMANIEGO informed her WW could be obtained thru local DME co through her insurance if she is not able to borrow a walker. Pt aware she may be medically ready to discharge today and states she will call her to inquire about it can be obtained today. Gaston WINN RN, CM
--- NOTE | 2021-06-11 14:35 | DS.PCM_ITS ---
Providers Date of Admission: 06/10/21 Primary Care Physician: Dr. Xavi Cramer MD Reason For Visit: TIA/EXPRESSIVE APHASIA, FACIAL DROOP TRANSIENTLY Diagnosis Discharge Diagnosis (1) CVA (cerebral vascular accident): Status: Acute Code(s): I63.9 - Cerebral infarction, unspecified Qualifiers: CVA mechanism: unspecified Qualified Code(s): I63.9 - Cerebral infarction, unspecified Medications at Discharge Home Medications atorvastatin 10 mg PO QODAY 06/10/21 buspirone 5 mg PO BID 06/10/21 diclofenac-misoprostol 1 tab PO BID 06/10/21 duloxetine 60 mg PO DAILY 06/10/21 propranolol 20 mg PO DAILY 06/10/21 zolpidem 6.25 mg PO QHS 06/10/21 Hospital Course Operations None Procedures None and 2-D Echocardiogram Summary of Care Provided Minutes Spent on Discharge: 35 Hospital Course: Patient is a 75-year-old female with a past medical history as outlined was admitted through the ED on 06/10/2021 with concerns for abnormal speech, slurred speech and confusion. Patient however states that she is edentulous and so her speech is slurred when her dentures are not in. She did not think there was any change in his speech. According to the admitting note, patient was noted to be confused on the evening prior to admission with her asking about her grandparents. On the day of admission, she had improved but was noted to have some expressive aphasia and slurring of his speech and associated nausea and vomiting so she was brought into the ED. Also in the ED, patient had mechanical fall though she had returned to her baseline mentation. CT of the brain showed no acute intracranial pathology. EKG showed sinus tachycardia with no acute evidence of ischemia. She was admitted to manage for confusion and slurring of his speech to rule out stroke. She had an MRI of the brain which showed no acute intracranial pathology and showed mild diffuse parenchymal atrophy and moderate to severe bilateral hippocampal atrophy with moderate chronic ischemic vessel disease and up to 25% luminal narrowing of the intracranial right vertebral artery no large vessel occlusion. She had 2D echo which showed preserved EF of 55-60%, and normal LV systolic function as well. Patient work with PT and OT and was stable and was deemed as not needing any additional therapy. Of note patient's heart rate was elevated in the low 100s but she was on metoprolol which was held on admission to allow for passive hypertension in case of a stroke. Her metoprolol was resumed. Patient remained stable and was discharged on 06/11/2021. She is follow-up with her primary care doctor in 1 to 2 weeks. Patient seen and examined prior to discharge. She had no active complaints and felt well. Review of stents otherwise negative. Labs and vitals reviewed. Home medication reviewed and reconciled. Physical Exam Const alert, oriented x3 and no apparent distress General Appearance: cooperative and comfortable Orientation / Consciousness: awake Exam Limitations: no limitations HEENT normocephalic, head/scalp atraumatic, hearing grossly normal bilaterally and moist oral mucous membranes Eyes PERRL, EOMs intact bilaterally and conjunctivae normal Neck no lymphadenopathy, supple and no JVD Resp normal respiratory effort, no use of accessory muscles and clear to auscultation bilaterally Cardio regular rhythm, S1 normal heart sound and S2 normal heart sound Cardio Narrative: tachycardic GI normal to inspection, nondistended, normoactive bowel sounds, soft to palpation and non-tender Extremity normal to inspection, full ROM and no clubbing, cyanosis or edema Skin no rashes or lesions noted Neuro oriented x3 and moves all extremities Sensorium / Orientation: awake and alert Psych affect normal Weight / BMI Weight Weight: 212 lb 11.937 oz Body Mass Index (BMI) 39.4 ABG / Lab / Microbiology Data Result Diagrams: 06/11/21 03:43 06/11/21 03:43 Laboratory: Laboratory Results - last 24 hr 06/10/21 11:25: Magnesium 1.6 06/10/21 17:35: Procalcitonin 0.05 06/11/21 03:43: WBC 10.9, RBC 4.17 L, Hgb 12.6, Hct 36.0 L, MCV 86.3, MCH 30.2, MCHC 35.0, RDW Std Deviation 45.0 H, RDW Coeff of Radha 14.3, Plt Count 371, MPV 10.8, Immature Gran % (Auto) 0.300, Neut % (Auto) 59.3, Lymph % (Auto) 27.2, [place] % (Auto) 9.6, Eos % (Auto) 2.9, Baso % (Auto) 0.7, Absolute Neuts (auto) 6.4, Absolute Lymphs (auto) 2.96, Nucleated RBC % 0 06/11/21 03:43: Sodium 139, Potassium 3.4 L, Chloride 106, Carbon Dioxide 25.0, Anion Gap 8, BUN 7, Creatinine 0.75, Estim Creat Clear Calc 36.68, Est GFR (MDRD) Af Amer 96, Est GFR (MDRD) Non-Af 80, BUN/Creatinine Ratio 9.3 L, Glucose 118 H, Calcium 8.7, Total Bilirubin 0.60, AST 15, ALT 23, Alkaline Phosphatase 95, Total Protein 7.2, Albumin 3.4, Globulin 3.8, Albumin/Globulin Ratio 0.9, Triglycerides 99, Cholesterol 164, LDL Cholesterol 79, VLDL Cholesterol 20, HDL Cholesterol 65, TSH 4.14 H 06/11/21 03:43: Hemoglobin A1c 5.6 Radiography Diagnostic Testing: Radiology Impression Chest X-Ray 06/10/21 14:06 IMPRESSION: No acute abnormality is seen. Electronically Signed: Luis Miguel Saavedra MD at 14:46 EST Reading Location ID and State: [facility] / [place] , Service support , Brain CT 06/10/21 15:17 IMPRESSION: No acute intracranial or calvarial abnormality. If there is continued concern for acute stroke, MRI is recommended. Electronically Signed: Silvino Aguillon DO at 16:39 EST Reading Location ID and State: [facility] / [place] Tel [phone], Service support , Chest X-Ray 06/10/21 15:17 IMPRESSION: No acute cardiopulmonary disease or interval change. Electronically Signed: Silvino Aguillon DO at 16:22 EST Reading Location ID and State: [facility] / [place] Tel [phone], Service support , Brain MRI 06/10/21 18:13 IMPRESSION: Mild diffuse parenchymal atrophy and moderate to severe bilateral hippocampal atrophy. Moderate chronic small vessel ischemic changes evidenced by T2 and FLAIR bright foci involving the deep periventricular white matter of the frontal lobes with mild involvement of the parietal lobes. Up to 25% luminal narrowing intracranial right vertebral artery. No large vessel occlusion. No evidence of acute intracranial pathology. Electronically Signed: Mateus Alexandra DO at 20:58 EST , Head MRA 06/10/21 18:13 IMPRESSION: Mild diffuse parenchymal atrophy and moderate to severe bilateral hippocampal atrophy. Moderate chronic small vessel ischemic changes evidenced by T2 and FLAIR bright foci involving the deep periventricular white matter of the frontal lobes with mild involvement of the parietal lobes. Up to 25% luminal narrowing intracranial right vertebral artery. No large vessel occlusion. No evidence of acute intracranial pathology. Electronically Signed: Mateus Alexandra DO at 20:59 EST , D/C Instructions Discharge Diet: Low fat / Low cholesterol Discharge Activity: Return to Normal Activity Call your doctor if you observe: Fever of 101 or Higher, Shortness of breath, Dizziness, Swelling in the ankles, Chest pain and Uncontrolled pain Meaningful Use Info Meaningful Use Diagnoses (Choose all that apply): None applicable Discharge Plan Admission Admit Date/Time: 06/10/21 17:00 Primary Reason for Your Visit: slurred speech, confusion Attending Provider: Maria Ines Rodriges Primary Care Provider: Xavi Cramer Instructions Patient Instructions: ED Confusion Additional Instructions / Restrictions: Your labs today were pretty unremarkable. There were no obvious signs of infection or cause for your mental status change. I would like you to see your primary care physician in 1 to 2 days to ensure you are improving and doing well. There could be something that has gone on that we could not find today. I just want him to check out again to make sure you are doing well. I spoke to Dr. Cramer today call his office and they will ensure to get you in follow-up soon. Return to the emergency department if confusion returns or you are not feeling well. Discharge Orders/Prescriptions Prescriptions: Continued diclofenac-misoprostol 75-200 mg-mcg tablet,IR,delayed rel,biphasic 1 tab PO BID RF: 0 buspirone 5 mg tablet 5 mg PO BID RF: 0 atorvastatin 10 mg tablet 10 mg PO QODAY RF: 0 propranolol 20 mg tablet 20 mg PO DAILY RF: 0 duloxetine 60 mg capsule,delayed release(DR/EC) 60 mg PO DAILY RF: 0 zolpidem 6.25 mg tablet,ext release multiphase 6.25 mg PO QHS RF: 0 Referrals / Follow Up: Xavi Cramer MD [Primary Care Provider] - Within 1 Week Disposition Disposition (needs filled in before D/C Order can be placed): Home, Self Care Charges/Coding Visit Charges OBSV E&M: 39382 Observation care discharge
[2021-06-11] MEDS: Propranolol 10 MG Tablet 20 MG PO (14:43)
[2021-06-11] MEDS: Metoprolol Tartrate 5 MG/5 ML Vial IV (15:41)
== END 2021-06-11 14:43 | disposition home or self-care (01) ==
LOC: ED 16:46 → PCU 17:23
PROVIDERS: Admitting Provider Family Medicine; Emergency Provider Emergency Medicine; PCP Family Medicine; Visit Provider Student in an Organized Health Care Education/Training Program
DX: I63.9 Cerebral infarction, unspecified (principal); R00.0 Tachycardia, unspecified; D72.829 Elevated white blood cell count, unspecified; R47.01 Aphasia; E78.5 Hyperlipidemia, unspecified; R47.81 Slurred speech; I10 Essential (primary) hypertension; R29.810 Facial weakness; R29.700 NIHSS score 0; F41.9 Anxiety disorder, unspecified; F32.A Depression, unspecified; Z79.899 Other long term (current) drug therapy; B37.2 Candidiasis of skin and nail; R94.31 Abnormal electrocardiogram [ECG] [EKG]
CPT/HCPCS: 36415; 70450; 70544; 70551; 71045; 80048; 80053; 80061; 81001; 83036; 83735; 84145; 84443; 85025; 85610; 85730; 92610; 93005; 93306; 94762; 96361; 96372; 96374; 97162; 97166; 97802; 99218; 99285; J7030; J7040; Q9957; A4216; G0378